=== PATIENT | female | born 1985 | race Asian ===

== ENCOUNTER 2017-11-05 08:50 | Inpatient (IN) | payer MEDICAID, OTHER ==
[2017-11-05] VITALS (11 sets, daily range): BP systolic 87–128; BP diastolic 62–85; PULSE 64–90; RESP 16–20; TEMP 97.4–97.6
[~2017-11-05 08:50] MED LIST: DOCU1CAP39 PO; HYDR2.5T PO; IBUP800 PO; PREN0.01 PO
[2017-11-05] MEDS ORDERED: CITRIC ACID-SODIUM CITRATE LIQ 30 ML UDC PO SCH (12:00)
[2017-11-05] MEDS ORDERED: LIDOCAINE HCL 1% 50 ML VIAL INFIL PRN (12:00)
[2017-11-05] MEDS ORDERED: SODIUM CHLORID 0.9% 500 ML INJ 500 ML IV PRN (12:00)
[2017-11-05] MEDS ORDERED: MINERAL OIL 10 ML VIAL TOPICAL PRN (12:00)
[2017-11-05] MEDS ORDERED: LIDOCAINE HCL 1% 50 ML VIAL I-DERMAL PRN (12:00)
--- NOTE | 2017-11-05 12:02 | HHI.HP ---
HPI Chief Complaint Contractions Date Seen: Nov 05, 2017 Time Seen: 11:55 Travel History International Travel<30 Days: No Contact w/Intl Traveler<30Days: No Known Affected Area: No History of Present Illness HPI Patient is 32-year-old female with no care with this presents to labor and delivery complaining contractions. Ultrasound was done by OB diagnostics shows 34 week size infant 5 lbs. 5 oz. with a normal anatomy and fluid. Contractions are regular and painful. While in OB ED she had spontaneous rupture membranes, she was checked by the nurse because the physician was tied up in a and she was 5-6 cm at that time. By the time I have came out to check her in OB ED she was completely dilated vertex at 0 station Weeks Gestation: 34 Para: 2 : 3 Last Menstrual Period: Nov 05, 2017 Allergies-Medications (Allergen,Severity, Reaction): Coded Allergies: No Known Allergies (Verified , 03/02/13) Home Meds Reported Medications Docusate Sodium (Colace 100 Mg Cap) 100 Mg Cap, 100 MG PO BID, #30 CAP 03/03/13 Ibuprofen (Motrin 800 Mg Tab) 800 Mg Tab, 800 MG PO Q8, #30 TAB 03/03/13 Hydrocodone-Acetaminophen (Lortab 2.5/500) Tab, 1 TAB PO Q4 Y for PAIN AND/OR AGITATION, #20 TAB FOR PAIN 03/03/13 Multivit/Min/Fol Ac/Iron/Pren ( Vit ( Plus)) Tab, 1 TAB PO DAILY, #30 12/07/10 Review of Systems General / Constitutional: No: Fever, Weight Gain, Chills, Other Eyes: No: Diploplia, Blurred Vision, Visual changes, Pain, Photophobia HENT: No: Headaches, Vertigo, Lightheadedness Cardiovascular: No: Irregular Rhythm, Chest Pain or Discomfort, Palpitations, Tachycardia, Syncope, Varicosities, Edema, Cyanosis Respiratory: No: Cough, Short of Breath, Other Gastrointestinal: Abdominal Pain, No: Nausea, Vomiting, Diarrhea Genitourinary: No: Decreased Urinary Output, Oliguria Musculoskeletal: No: Limited ROM, Weakness, Cramping, Edema, Pain Skin: No Rash, No Itching, No Dryness, No Lumps, No Change in Pigmentation, No Change in Nails, No Alopecia, No Lesions Neurologic: No: Weakness, Dizziness, Syncope, Focal Abnormalities, Coordination Problem, Headache, Slurred Speech, Seizures Psychiatric: No: Depression, Suicidal Ideations, Homicidal Ideation Endocrine: No: Heat Intolerance, Cold Intolerance, Polydipsia, Polyuria, Other Physical Exam Narrative GENERAL: Well-nourished, well-developed patient. SKIN: Warm and dry. HEAD: Normocephalic and atraumatic. EYES: No scleral icterus. No injection or drainage. ENT: No nasal drainage noted. Mucous membranes pink. Airway patent. NECK: Supple, trachea midline. No JVD. CARDIOVASCULAR: Regular rate and rhythm without murmurs, gallops, or rubs. RESPIRATORY: Breath sounds equal bilaterally. No accessory muscle use. BREASTS: Bilateral exam showed no masses , no retractions, no nipple discharge. ABDOMEN/GI: Abdomen soft, non-tender, bowel sounds present, no rebound, no guarding Gravid to [-34] weeks size Fundal Height: [34-] GENITOURINARY: External Genitalia: intact and normal in appearance BUS glands: [-] Cervix: [post] Dilatation: [-5-6] Effacement: [80-] Station: [-1] Presentation: [-vtx] Membranes: [intact ] Uterine Contractions: [reg-] FHT's: Category: [1-] Baseline: [133-] Reactive: [-R] Variability: [-mod] Decels: [-none] EXTREMITIES: No cyanosis or edema. BACK: Nontender without obvious deformity. No CVA tenderness. NEUROLOGICAL: Awake and alert. Motor and sensory grossly within normal limits. Five out of 5 muscle strength in all muscle groups. Normal speech. Caprini VTE Risk Assessment Caprini VTE Risk Assessment: No/Low Risk (score <= 1) Caprini Risk Assessment Model Point Value = 1 Point Value = 2 Point Value = 3 Point Value = 5 Age 41-60 Minor surgery BMI > 25 kg/m2 Swollen legs Varicose veins or History of unexplained or recurrent spontaneous Oral contraceptives or hormone replacement Sepsis (< 1 month) Serious lung disease, including pneumonia (< 1 month) Abnormal pulmonary function Acute myocardial infarction Congestive heart failure (< 1 month) History of inflammatory bowel disease Medical patient at bed rest Age 61-74 Arthroscopic surgery Major open surgery (> 45 min) Laparoscopic surgery (> 45 min) Malignancy Confined to bed (> 72 hours) Immobilizing plaster cast Central venous access Age >= 75 History of VTE Family history of VTE Factor V Leiden Prothrombin [id number] Lupus anticoagulant Anticardiolipin antibodies Elevated serum homocysteine Heparin-induced thrombocytopenia Other congenital or acquired thrombophilia Stroke (< 1 month) Elective arthroplasty Hip, pelvis, or leg fracture Acute spinal cord injury (< 1 month) Prophylaxis Regimen Total Risk Factor Score Risk Level Prophylaxis Regimen 0-1 Low Early ambulation 2 Moderate Order ONE of the following: *Sequential Compression Device (SCD) *Heparin 5000 units SQ BID 3-4 Higher Order ONE of the following medications: *Heparin 5000 units SQ TID *Enoxaparin/Lovenox 40 mg SQ daily (WT < 150 kg, CrCl > 30 mL/min) *Enoxaparin/Lovenox 30 mg SQ daily (WT < 150 kg, CrCl > 10-29 mL/min) *Enoxaparin/Lovenox 30 mg SQ BID (WT < 150 kg, CrCl > 30 mL/min) AND/OR *Sequential Compression Device (SCD) 5 or more Highest Order ONE of the following medications: *Heparin 5000 units SQ TID (Preferred with Epidurals) *Enoxaparin/Lovenox 40 mg SQ daily (WT < 150 kg, CrCl > 30 mL/min) *Enoxaparin/Lovenox 30 mg SQ daily (WT < 150 kg, CrCl > 10-29 mL/min) *Enoxaparin/Lovenox 30 mg SQ BID (WT < 150 kg, CrCl > 30 mL/min) AND *Sequential Compression Device (SCD) Data Data Orders Orders Vital Signs (Adult) .ON ADMISSION (11/05/17 10:14) ^ Labor Status (11/05/17 10:14) ^ Non Stress Test (11/05/17 10:14) Us Ob Pelvis >14 Wks Fetus (11/05/17 ) Ob (2e) Additional Admit Info (11/05/17 11:57) Admit To Inpatient (11/05/17 ) Vital Signs (Adult) .Per protocol (11/05/17 11:58) Heart (11/05/17 11:58) Amnioinfusion (11/05/17 11:58) Urinary Catheter Management .ONCE (11/05/17 11:58) Diet Liquid (11/05/17 Lunch) Lactated Ringer's 1000 Ml Inj (Lr 1000 M (11/05/17 11:58) Lactated Ringer's 1000 Ml Inj (Lr 1000 M (11/05/17 11:58) Sodium Chlorid 0.9% 500 Ml Inj (Ns 500 M (11/05/17 12:00) Sodium Chlor 0.9% 1000 Ml Inj (Ns 1000 M (11/05/17 12:18) Lidocaine 1% Inj (50 Ml) (Xylocaine 1% I (11/05/17 12:00) Citric Acid-Sodium Citrate Liq (Bicitra (11/05/17 12:00) Fentanyl Inj (Fentanyl Inj) (11/05/17 12:00) Fentanyl Inj (Fentanyl Inj) (11/05/17 12:00) Penicillin G Potassium Inj (Pfizerpen-G (11/05/17 12:00) Penicillin G Potassium Inj (Pfizerpen-G (11/05/17 16:00) Complete Blood Count With Diff (11/05/17 11:58) Hold Clot (11/05/17 11:58) Abo/Rh Blood Type (11/05/17 11:58) Urinalysis - C+S If Indicated (11/05/17 11:58) Drug Screen, Random Urine (11/05/17 11:58) Ob/Psych Drug Screen, Urine (11/05/17 11:58) Resp Oxygen Non Rebreathe Mask (11/05/17 ) ^ Epidural / Intrathecal Infus (11/05/17 11:58) Oxytocin 30 Units-500ml Premix (Pitocin (11/05/17 12:00) Lidocaine 1% Inj (50 Ml) (Xylocaine 1% I (11/05/17 12:00) Light Mineral Oil (Muri-Lube Oil) (11/05/17 12:00) Assessment/Plan Assessment and Plan Patient is 32-year-old female at approximately 34 weeks gestation by ultrasound on the day who presents with no care to OB ED complaining of contractions and noted to be in precipitate labor. Initially was 5-6 cm dilated within the hour she is completely dilated membranes ruptured spontaneously and OB ED. heart tones within normal limits she is domenico regularly. She was moved to a labor room and rapidly delivered Impression-precipitous labor with patient with no care Plan-admit to labor and delivery vaginal delivery without complication, placenta sent to pathology Alin Anaya II, MD Nov 05, 2017 12:01
[2017-11-05] MEDS ORDERED: LIDOCAINE HCL 1% PF 30 ML VIAL ONE (12:08)
[2017-11-05] MEDS ORDERED: SODIUM CHLORIDE 0.9% FLUSH 10 ML FLUSH IV FLUSH PRN (12:30)
[2017-11-05] MEDS ORDERED: WITCH HAZEL 50%/GLYCERIN 12.5% 40 PAD JAR TOPICAL PRN (12:30)
[2017-11-05] MEDS ORDERED: BENZOCAINE 20% TOPICAL SPRAY 60 ML CAN TOPICAL PRN (12:30)
[2017-11-05] MEDS ORDERED: oxyCODONE/ACETAMINOPHEN 5 MG/325 MG TAB PO PRN ×2 (12:30)
[2017-11-05] MEDS ORDERED: ACETAMINOPHEN 325 MG TAB PO PRN (12:30)
[2017-11-05] MEDS ORDERED: DOCUSATE SODIUM 50 MG/SENNA 8.6 MG TAB PO PRN (12:30)
[2017-11-05] MEDS ORDERED: ZOLPIDEM TARTRATE 5 MG TAB PO PRN (12:30)
[2017-11-05] MEDS ORDERED: ALUMINUM/MAGNESIUM/SIMETH 30 ML CUP PO PRN (12:30)
[2017-11-05] MEDS ORDERED: ONDANSETRON ODT 4 MG TAB PO PRN (12:30)
--- NOTE | 2017-11-05 12:35 | PD.OB.DELI ---
Weeks gestation: 34 Pt started active labor?: Yes Medical induction of labor?: No Artificial rupture of membrane: No Anesthesia: None Episiotomy: None Vaginal Delivery: Normal Presentation: Occiput posterior Nuchal Cord: Other (body cord) Delayed cord clamping (45 sec): No (cord severed with gentle reduction of body cord) Infant: Female, Single Delivery date: Nov 05, 2017 Delivery time: 12:04 One Minute : 9 Five Minute : 9 Weight: 2565g Placenta: Manual removal, Intact, Uterus explored +, 3 vessel cord, Other ( Cord severed upon attempt to gently reduce body cord. Baby's portion of cord was grasped, however the placental portion of the cord retracted into the uterus. Placenta was then manually removed and manual uterine exploration after delivery of the placenta was negative for any retained placenta.) Laceration: Perineal laceration, 2 deg Repair: Chromic running Estimated blood loss: 250cc Additional Information Supervised by Gail Villafana MD R3 Nov 05, 2017 12:35
[2017-11-05] MEDS: IBUPROFEN 800 MG TAB PO PRN (12:44)
[2017-11-05] MEDS ORDERED: LACTATED RINGER'S 1000 ML INJ 1,000 ML IV SCH (13:00)
[2017-11-05] MEDS ORDERED: OXYTOCIN 30 UNITS-500ML PREMIX 500 ML IV ONE (13:00)
[2017-11-05] MEDS ORDERED: LACTATED RINGER'S 1000 ML INJ 1,000 ML IV PRN (13:00)
[2017-11-05] MEDS ORDERED: SODIUM CHLOR 0.9% 1000 ML INJ 1,000 ML IV PRN (13:00)
[2017-11-05] MEDS ORDERED: PENICILLIN G POTASSIUM INJ 5,000,000 UNITS in SODIUM CHLORIDE 0.9% INJ 100 ML IV ONE (13:00)
[2017-11-05 13:03] LABS: AUTOMATED NEUTROPHIL # 8.6 TH/MM3 (1.8-7.7); BASOPHIL % 0.4 % (0.0-2.0); EOSINOPHIL # 0.1 TH/MM3 (0-0.4); EOSINOPHIL % 1.1 % (0.0-4.0); HEMOGLOBIN 14.3 GM/DL (11.6-15.3); LYMPHOCYTE # 1.3 TH/MM3 (1.0-4.8); MEAN CELL VOLUME 94.7 FL (80.0-100.0); MEAN CORPUSCULAR HEMOGLOBIN 32.3 PG (27.0-34.0); MEAN CORPUSCULAR HGB CONC 34.1 % (32.0-36.0); MEAN PLATELET VOLUME 8.5 FL (7.0-11.0); MONO % 5.2 % (0.0-8.0); MONOCYTE # 0.6 TH/MM3 (0-0.9); NEUT % 81.3 % (16.0-70.0); PLATELET COUNT 211 TH/MM3 (150-450); RED BLOOD COUNT 4.43 MIL/MM3 (4.00-5.30); RED CELL DISTRIBUTION WIDTH 13.4 % (11.6-17.2); WHITE BLOOD COUNT 10.5 TH/MM3 (4.0-11.0)
[2017-11-05 13:23] LABS: BACTERIA, URINE RARE /hpf; BILIRUBIN, URINE NEG (NEG); BLOOD, URINE MOD (NEG); GLUCOSE,URINE NEG (NEG); KETONE, URINE NEG (NEG); MUCUS URINE FEW /lpf (OCC); NITRITE,URINE NEG (NEG); SQUAMOUS EPITHELIAL CELL URINE 1 /hpf (0-5); URINE COLOR LIGHT-YELLOW (YELLW/STRAW); URINE LEUKOCYTE ESTERASE NEG (NEG)
[2017-11-05] MEDS ORDERED: OXYTOCIN 30 UNITS-500ML PREMIX 500 ML IV SCH (14:00)
[2017-11-05] MEDS ORDERED: DIPHTH/TETANUS/ACEL PERTUSSIS (BOOSTER) 0.5 ML VIAL/PFS IM ONE (16:00)
[2017-11-05] MEDS ORDERED: PENICILLIN G POTASSIUM INJ 2,500,000 UNITS in SODIUM CHLORIDE 0.9% INJ 100 ML IV SCH (16:00)
[2017-11-05] MEDS ORDERED: MEASLES, MUMPS, RUBELLA VACCINE 0.5 ML VIAL SQ ONE (16:00)
[2017-11-05] MEDS ORDERED: SODIUM CHLORIDE 0.9% FLUSH 10 ML FLUSH IV FLUSH SCH (21:00)
[2017-11-06] MEDS: IBUPROFEN 800 MG TAB PO PRN ×2 (00:35→15:21)
--- NOTE | 2017-11-06 08:23 | HHI.OB ---
Subjective Post Day: 1 Remarks Pt seen and examined this morning. day # 1 AFVSS overnight. Decreased lochia. Denies dysuria. No breast tenderness. She is feeding the baby via breast. Appetite good. No nausea or vomiting. Patient has not yet had a bowel movement, but does endorse passing bowel gas. Ambulating well. Denies calf pain or shortness of breath. Otherwise, she is doing well this morning and has no other concerns. Objective Vitals/I&O Vital Signs Date Time Temp Pulse Resp B/P (MAP) Pulse Ox O2 Delivery O2 Flow Rate FiO2 11/05/17 19:57 97.4 64 18 106/69 (81) 11/05/17 14:15 97.6 78 16 102/62 (75) 11/05/17 13:59 20 11/05/17 13:46 79 107/75 (86) 11/05/17 13:15 20 11/05/17 13:15 81 107/78 (88) 11/05/17 13:00 79 20 117/69 (85) 11/05/17 13:00 97.6 11/05/17 12:48 79 118/85 (96) 11/05/17 12:44 79 115/81 (92) 11/05/17 12:29 90 87/63 (71) 11/05/17 12:28 20 11/05/17 12:18 89 128/82 (97) Objective Remarks GENERAL: Well-nourished, well-developed patient. CARDIOVASCULAR: Regular rate and rhythm without murmurs, gallops, or rubs. RESPIRATORY: Breath sounds equal bilaterally. No accessory muscle use. ABDOMEN/GI: Abdomen soft, non-tender. Fundus: Firm, non-tender at umbilicus. GENITOURINARY: Light to moderate bleeding. EXTREMITIES: No cyanosis or edema, non-tender, without signs of DVT. Medications and IVs Current Medications Medications (Trade) Dose Ordered Sig/Tushar Route Start Time Stop Time Status Last Admin Lactated Ringer's 1,000 ml @ 125 mls/hr Q8H IV 11/05/17 13:00 (Xylocaine 1% Inj (50 ml)) 0.1 ml UNSCH X1 PRN I-DERMAL 11/05/17 12:00 11/08/17 11:59 (Bicitra Liq) 30 ml [employer] DEVELOPER PO 4/21/18 12:00 11/09/17 11:59 (Xylocaine 1% Inj (50 ml)) 10 ml UNSCH X1 PRN INFIL 11/05/17 12:00 11/07/17 11:59 (Muri-Lube Oil) 10 ml UNSCH PRN TOPICAL 11/05/17 12:00 (NS Flush) 2 ml BID IV FLUSH 11/05/17 21:00 (NS Flush) 2 ml UNSCH PRN IV FLUSH 11/05/17 12:30 (Tylenol) 650 mg Q4H PRN PO 11/05/17 12:30 (Motrin) 800 mg Q8H PRN PO 11/05/17 12:30 11/06/17 00:35 (Percocet 5-325 Mg) 1 tab Q4H PRN PO 11/05/17 12:30 (Percocet 5-325 Mg) 2 tab Q4H PRN PO 11/05/17 12:30 (Americaine 20% Top Spr) 1 spray Q4H PRN TOPICAL 11/05/17 12:30 (Tucks Pads) 1 applic QID PRN TOPICAL 11/05/17 12:30 (Judy-Colace) 2 tab Q12H PRN PO 11/05/17 12:30 (Ambien) 5 mg HS PRN PO 11/05/17 12:30 (Mag-Al Plus Susp Liq) 15 ml Q8H PRN PO 11/05/17 12:30 (Zofran Odt) 4 mg Q6H PRN PO 11/05/17 12:30 Assessment/Plan Problem List: (1) (spontaneous vaginal delivery) ICD Codes: O80 - Encounter for full-term uncomplicated delivery Status: Acute Assessment and Plan 32 y/o female who is day # 1 s/p . -Continue routine care. -Percocet and Motrin PRN pain. -Encouraged OOB. Advised pelvic rest for 6 wks. -Re: ctrl, she would like to discuss her options at a later point in time. -Anticipate discharge tomorrow. anushka Anaya MD Discharge Planning Likely tomorrow Sai Mendez MD R2 Nov 06, 2017 08:23
[2017-11-06 08:45] VITALS: BP 104/70; PULSE 80; RESP 14; TEMP 98.1
[2017-11-06 21:15] VITALS: BP 114/80; PULSE 68; RESP 18; TEMP 98
[2017-11-07 08:00] VITALS: BP 111/86; PULSE 76; RESP 18; TEMP 97.6; O2SAT 97
--- NOTE | 2017-11-07 08:25 | HHI.OB ---
Subjective Remarks Pt seen and examined this morning. day # 2 AFVSS overnight. Denies dysuria. No breast tenderness. She is feeding the baby via breast. Appetite good. No nausea or vomiting. Patient has not yet had a bowel movement, but does endorse passing bowel gas. Ambulating well. Denies calf pain or shortness of breath. Otherwise, she is doing well this morning and has no other concerns. Objective Vitals/I&O Vital Signs Date Time Temp Pulse Resp B/P (MAP) Pulse Ox O2 Delivery O2 Flow Rate FiO2 11/06/17 21:15 98.0 68 18 114/80 (91) 11/06/17 08:45 98.1 80 14 104/70 (81) Objective Remarks GENERAL: Well-nourished, well-developed patient. CARDIOVASCULAR: Regular rate and rhythm without murmurs, gallops, or rubs. RESPIRATORY: Breath sounds equal bilaterally. No accessory muscle use. ABDOMEN/GI: Abdomen soft, non-tender. Fundus: Firm, non-tender at umbilicus. GENITOURINARY: Light to moderate bleeding. EXTREMITIES: No cyanosis or edema, non-tender, without signs of DVT. Medications and IVs Current Medications Medications (Trade) Dose Ordered Sig/Tushar Route Start Time Stop Time Status Last Admin Lactated Ringer's 1,000 ml @ 125 mls/hr Q8H IV 11/05/17 13:00 (Xylocaine 1% Inj (50 ml)) 0.1 ml UNSCH X1 PRN I-DERMAL 11/05/17 12:00 11/08/17 11:59 (Bicitra Liq) 30 ml FLAME GOUGER PO 11/05/17 12:00 11/09/17 11:59 (Xylocaine 1% Inj (50 ml)) 10 ml UNSCH X1 PRN INFIL 11/05/17 12:00 11/07/17 11:59 (Muri-Lube Oil) 10 ml UNSCH PRN TOPICAL 11/05/17 12:00 (NS Flush) 2 ml BID IV FLUSH 11/05/17 21:00 (NS Flush) 2 ml UNSCH PRN IV FLUSH 11/05/17 12:30 (Tylenol) 650 mg Q4H PRN PO 11/05/17 12:30 (Motrin) 800 mg Q8H PRN PO 11/05/17 12:30 4/22/18 15:21 (Percocet 5-325 Mg) 1 tab Q4H PRN PO 11/05/17 12:30 (Percocet 5-325 Mg) 2 tab Q4H PRN PO 11/05/17 12:30 (Americaine 20% Top Spr) 1 spray Q4H PRN TOPICAL 11/05/17 12:30 (Tucks Pads) 1 applic QID PRN TOPICAL 11/05/17 12:30 (Judy-Colace) 2 tab Q12H PRN PO 11/05/17 12:30 (Ambien) 5 mg HS PRN PO 11/05/17 12:30 (Mag-Al Plus Susp Liq) 15 ml Q8H PRN PO 11/05/17 12:30 (Zofran Odt) 4 mg Q6H PRN PO 11/05/17 12:30 Assessment/Plan Problem List: (1) (spontaneous vaginal delivery) ICD Codes: O80 - Encounter for full-term uncomplicated delivery Status: Acute Assessment and Plan 32 y/o female who is day # 2 s/p . -Continue routine care. -Motrin PRN pain. -Encouraged OOB. Advised pelvic rest for 6 wks. -Re: ctrl, she would like to discuss her options at a later point in time. Case management assisting with establishing care with PCP or [employer]. -Anticipate discharge today dw Dr. Albert and Dr. Mcfadden Discharge Planning Likely tomorrow Niurka Stout MD R1 Nov 07, 2017 08:24
--- NOTE | 2017-11-07 08:26 | HHI.DCPOC ---
Discharge Care Plan Diagnosis: (1) (spontaneous vaginal delivery) Report Symptoms to Your Doctor -Temperature above 100.5 degrees -Redness, of incision or excessive or foul smelling drainage -Unusual pain or calf pain -Increased vaginal bleeding -Painful or difficulty urinating -Feelings of extreme sadness or anxiety after 2 weeks Goals to Promote Your Health * To prevent worsening of your condition and complications * To maintain your health at the optimal level Directions to Meet Your Goals Take your medications as prescribed Follow your dietary instruction Follow activity as directed Ensure plenty of rest for recovery Drink fluids for hydration Keep your appointments as scheduled Take your immunizations and boosters as scheduled If your symptoms worsen call your PCP, if no PCP go to Urgent Care Center or Emergency Room Smoking is Dangerous to Your Health. Avoid second hand smoke Call the 24-hour crisis hotline for domestic abuse at Niurka Stout MD R1 Nov 07, 2017 08:26
[2017-11-07] MEDS: IBUPROFEN 800 MG TAB PO PRN (08:35)
== END 2017-11-07 15:05 | disposition home or self-care (01) | DRG 775 ==
LOC: HOBED 08:50 → H2EA 12:07 → H1EA 14:03
PROVIDERS: ADMIT Obstetrics & Gynecology Maternal & Fetal Medicine; ATTEND Obstetrics & Gynecology Maternal & Fetal Medicine
PROC: 10E0XZZ Delivery of Products of Conception, External Approach (ICD-10-PCS; principal; 2017-11-05)
PROC: 0KQM0ZZ Repair Perineum Muscle, Open Approach (ICD-10-PCS; 2017-11-05)
DX: O60.14X0 Preterm labor third trimester with preterm delivery third trimester, not applicable or unspecified (principal); O62.3 Precipitate labor; O70.1 Second degree perineal laceration during delivery; O69.2XX0 Labor and delivery complicated by other cord entanglement, with compression, not applicable or unspecified; Z3A.34 34 weeks gestation of pregnancy; Z37.0 Single live birth
CPT/HCPCS: 76805; 80074; 80307; 81001; 85025; 86592; 86703; 86762; 88307; 99285; G0481